=== PATIENT | female | born 1955 | race Caucasian/White ===

== ENCOUNTER 2019-07-29 10:10 | Emergency (ER) | payer MEDICARE, BC ==
[2019-07-29 11:10] VITALS: BP 103/66
--- NOTE | 2019-07-29 12:45 | UC ---
Nausea/Vomiting/Diarrhea HPI - HPI Summary HPI Summary: 64-year-old female presents with complaints of nausea and diarrhea. States 3 days ago started with nausea evening. The following day she woke up with intermittent abdominal cramping and had multiple episodes of watery diarrhea throughout the day. Last episode of diarrhea was yesterday morning. Yesterday she started with a headache across the top of her head that got worse during the night last night despite taking ibuprofen. States at its worse rated headache as a 7/10. Reports headache is improved this morning. She continues to have nausea. Denies fever, chills, visual disturbances, photophobia, slurred or difficulty speaking, weakness, numbness, or tingling of the arms or legs, dizziness, lightheadedness, vomiting, blood in stool, melena, dysuria, frequency, urgency, or hematuria. - History of Current Complaint Chief Complaint: UCGI Stated Complaint: HEADACHE, GI UPSET Time Seen by Provider: 07/29/19 12:01 Hx Obtained From: Patient Pain Intensity: 3 - Allergies/Home Medications Allergies/Adverse Reactions: Allergies Allergy/AdvReac Type Severity Reaction Status Date / Time azithromycin Allergy Hives Verified 07/29/19 11:10 Home Medications: Home Medications Multivitamin [Multivitamins] 1 cap PO DAILY 07/29/19 [History Confirmed 07/29/19 ] PMH/Surg Hx/FS Hx/Imm Hx - Additional Past Medical History Additional PMH: Osteoporosis - Surgical History Surgical History: None - Family History Known Family History: Positive: Non-Contributory - Social History Occupation: Retired Lives: With Family Alcohol Use: Weekly Substance Use Type: None Smoking Status (MU): Never Smoked Tobacco Review of Systems All Other Systems Reviewed And Are Negative: Yes Constitutional: Negative: Fever, Chills Eyes: Negative: Blurred Vision, Diplopia, Photophobia ENT: Positive: Negative Respiratory: Positive: Negative Cardiovascular: Positive: Negative Gastrointestinal: Positive: Abdominal Pain - Cramping, Diarrhea, Nausea. Negative: Vomiting Genitourinary: Negative: Dysuria, Hematuria, Frequency, Urgency Musculoskeletal: Positive: Negative Neurological: Positive: Headache. Negative: Weakness, Paresthesia, Numbness Physical Exam - Summary Physical Exam Summary: GENERAL APPEARANCE: Well developed, well nourished, alert and cooperative, and appears to be in no acute distress. EYES: Conjunctiva clear. No drainage. PERRL, EOM intact. Vision is grossly intact. EARS: External auditory canals and tympanic membranes clear, hearing grossly intact. NOSE: No nasal discharge. THROAT: Pharynx normal No tonsilar inflammation, swelling, exudate, or lesions. Uvula midline. NECK: Neck supple, non-tender without lymphadenopathy. CARDIAC: Normal S1 and S2. No S3, S4 or murmurs. Rhythm is regular. There is no peripheral edema, cyanosis or pallor. Extremities are warm and well perfused. Capillary refill is less than 2 seconds. Peripheral pulses intact. LUNGS: Clear to auscultation without rales, rhonchi, wheezing or diminished breath sounds. ABDOMEN: Positive bowel sounds. Soft, nondistended, nontender. No guarding or rebound. No masses or hepatosplenomegally. MUSKULOSKELETAL: ROM intact to all extremities. No joint erythema or tenderness. Normal muscular development. Normal gait. NEUROLOGICAL: CN II-XII intact. Strength and sensation symmetric and intact throughout. SKIN: Skin normal color, texture and turgor with no lesions or eruptions. Triage Information Reviewed: Yes Vital Signs: Initial Vital Signs Temp 99.3 F 07/29/19 11:06 Pulse 69 07/29/19 11:06 Resp 18 07/29/19 11:06 BP 103/66 07/29/19 11:06 Pulse Ox 98 07/29/19 11:06 Vital Signs Reviewed: Yes Naus/Vom/Diarrhea Course/Dx - Course Course Of Treatment: 64-year-old female presents with complaints of nausea and diarrhea. States 3 days ago started with nausea evening. The following day she woke up with intermittent abdominal cramping and had multiple episodes of watery diarrhea throughout the day. Last episode of diarrhea was yesterday morning. Yesterday she started with a headache across the top of her head that got worse during the night last night despite taking ibuprofen. States at its worse rated headache as a 7/10. Reports headache is improved this morning. She continues to have nausea. Denies fever, chills, visual disturbances, photophobia, slurred or difficulty speaking, weakness, numbness, or tingling of the arms or legs, dizziness, lightheadedness, vomiting, blood in stool, melena, dysuria, frequency, urgency, or hematuria. Afebrile. Vital signs stable. Patient was neurologically intact and her exam was overall unremarkable. Discussed with patient that her symptoms are likely related to a viral gastroenteritis especially with symptoms improving. Recommending symptomatically treatment at this time. To follow up with her primary care provider in 3-5 days if symptoms are not improving. Anticipatory guidance and warning symptoms reviewed with the patient. Verbalizes understanding and agrees with plan of care. - Differential Dx/Diagnosis Differential Diagnoses - Female: Diverticulitis, Diverticulosis, Gastroenteritis (Viral), Gastroenteritis (Bacterial), Vomiting, Diarrhea, Colitis Provider Diagnosis: Acute diarrhea Condition At Discharge: Stable Discharge ED - Sign-Out/Discharge Documenting (check all that apply): Patient Departure All imaging exams completed and their final reports reviewed: No Studies - Discharge Plan Condition: Stable Disposition: HOME Patient Education Materials: Acute Diarrhea (ED) Referrals: No Primary Care Phys,NOPCP [Primary Care Provider] - Additional Instructions: Acute diarrhea typically resolves on its own without treatment over 2-3 days. The most important consideration with diarrhea is avoiding dehydration. Be sure to drink plenty of fluids. Avoid beverages containing caffeine or artificial sweeteners as these can worsen symptoms. Be sure to eat a well balanced diet. Boiled starches and cereals (potatoes, rice , cream of wheat, oatmeal) as well as food such as crackers, toast, bananas, soups and boiled vegetables are usually recommended if you are having watery diarrhea. Be sure to use good hand hygiene to prevent spreading infection. Use an over the counter pain medication such as acetaminophen (Tylenol), ibuprofen (Advil, Motrin), or naproxen (Aleve) according to directions as needed for aches and pains. Return here or follow up with your primary care provider in 3-5 days if symptoms persist. Seek immediate medical attention in the emergency room if you have fever greater than 100.5 F, have severe abdominal pain, persistent vomiting, blood in your vomit or stool, you become weak or dizzy, or have any worsening of symptoms. - Billing Disposition and Condition Condition: STABLE Disposition: Home
== END 2019-07-29 13:01 | disposition home or self-care (01) ==
LOC: UCEAST 10:10
DX: R19.7 Diarrhea, unspecified (principal); R11.0 Nausea; R51 Headache; R10.9 Unspecified abdominal pain; M81.0 Age-related osteoporosis without current pathological fracture; Z88.1 Allergy status to other antibiotic agents
CPT/HCPCS: 99211; G0463